=== PATIENT | female | born 1985 | race Caucasian/White ===

== ENCOUNTER 2016-07-09 08:41 | Emergency (ER) | payer BC ==
[~2016-07-09] VITALS: Ht 160 cm; Wt 49.6 kg
[2016-07-09 08:46] VITALS: TEMP 36.7; Ht 160 cm; Wt 49.6 kg
[2016-07-09] MEDS ORDERED: MULTTAB58 PO (08:50)
[2016-07-09] MEDS ORDERED: IBUPROFEN 200 MG TAB PO STA (08:57)
--- NOTE | 2016-07-09 10:12 | EMERGENCY ROOM VISIT NOTE ---
History First contact with patient: 08:48 Chief Complaint: FLU LIKE SX Stated Complaint: SORE THROAT, BUSTAMANTE, NAUSEA, MUSCLE SORENESS, FATIGUE History of Present Illness The patient is a 30 year old female who presents to the Emergency Room with complaints of sore throat, fatigue and muscle aches which started yesterday. The patient states that it was an abrupt onset of her symptoms. She also admits to a pressure headache which started yesterday. Currently she rates the headache at a 3 out of 10. She has not taken anything for the headache. The patient denies any fever. The patient does admit to some pressure in her ears and some nausea but denies any vomiting. The patient denies any cough or chest tightness. She does admit to diffuse body aches. The patient works at the [employer] at [employer]. Review of Systems 10 system review was performed and was negative unless stated otherwise history of present illness. Past Medical/Surgical History No Significant past medical history Social History Smoking Status: Never Smoker Smokeless Tobacco Use: No Alcohol Use: occasionally Drug Use: none Marital Status: single Housing Status: lives alone Occupation Status: employed Current/Historical Medications Scheduled Multiple Vitamin (Multivitamin), 1 TAB PO DAILY Allergies Coded Allergies: No Known Allergies (Unverified , 07/09/16) Physical Exam Vital Signs Date Time Temp Pulse Resp B/P Pulse Ox O2 Delivery O2 Flow Rate FiO2 07/09/16 08:46 36.7 75 16 114/68 99 Room Air Physical Exam PHYSICAL EXAM: Vital Signs were reviewed: Temperature 36.7, blood pressure 114/ 60, respiratory rate 16, pulse 75 Reviewed Nurse's notes and agree. Oxygen saturation is 99 % on room air which is normal . GENERAL: 30-year-old female appears in no acute distress. MENTAL STATUS: Alert, oriented, coherent. EARS: Canals clear. TMs good light reflex, no erythema or fluid level noted. NOSE: Nasal mucosa with moderate erythema engorgement. PHARYNX: Mild erythema, no edema noted. No exudate noted. Airway is adequate. NECK: Supple, non-tender. No lymphadenopathy noted. LUNGS: Clear to auscultation without wheezes rales or rhonchi. CARDIAC: Regular rate and rhythm without murmur. CERVICAL SPINE: Nontender to palpation over the spinous processes. Full range of motion without any difficulty. SKIN: No rashes noted. Medical Decision & Procedures Laboratory Results Test 5/19/17 09:10 Influenza Type A Antigen Neg for Influ A (NEG) Influenza Type B Antigen Neg for Influ B (NEG) Medications Administered Medications (Trade) Dose Ordered Sig/Enrique Route Start Time Stop Time Status Last Admin Dose Admin Ibuprofen (Advil Tab) 400 mg NOW STAT PO 07/09/16 08:57 07/09/16 08:58 DC 07/09/16 09:02 400 MG ED Course The patient was evaluated. The patient's EMR and medication list were reviewed. Rapid strep was negative. culture is pending.. Rapid influenza was negative for influenza A and influenza B.. The patient was given Motrin 400 mg by mouth for headache and body aches. The patient was informed of all findings and discharged home in stable condition. Medical Decision Differential diagnosis include influenza, strep pharyngitis, viral URI, Impression Primary Impression: Upper respiratory infection Additional Impression: Pharyngitis Departure Information Dispostion Home / Self-Care Condition GOOD Referrals No Doctor, Assigned (PCP) Forms HOME CARE DOCUMENTATION FORM, IMPORTANT VISIT INFORMATION Patient Instructions Common Cold - [facility], [facility], Sore Throat - [facility] Additional Instructions Follow sore throat handout instructions. Call in 24 hours for throat culture results. Push fluids, rest. Ibuprofen 400 mg every 6 hours with food for pain and body aches. If symptoms are not improving in 2-3 days recommend follow-up with your family physician. Problem Qualifiers Primary Impression: Upper respiratory infection URI type: unspecified viral URI Qualified Codes: J06.9 - Acute upper respiratory infection, unspecified; B97.89 - Other viral agents as the cause of diseases classified elsewhere Additional Impression: Pharyngitis Pharyngitis/tonsillitis etiology: unspecified etiology Qualified Codes: J02.9 - Acute pharyngitis, unspecified
[2016-07-09 10:19] VITALS: BP 107/43; PULSE 65; O2SAT 98
== END 2016-07-09 10:21 | disposition home or self-care (01) ==
LOC: C.EDB 08:46 → C.EDA 10:21
DX: J02.9 Acute pharyngitis, unspecified (principal); R53.83 Other fatigue; M79.1 Myalgia; R51 Headache

== ENCOUNTER → 2016-07-30 | Outpatient (CLI) | payer BC ==
[~2016-07-30] MED LIST: MULTTAB58 PO
[2016-08-02 15:43] LABS: CHLAMYDIA TRACH RNA*** NOT DETECTED (NOT DETECTED); GC (NEIS GONORRHOEAE)RNA** NOT DETECTED (NOT DETECTED)
== END | disposition home or self-care (01) ==
LOC: C.LABSPEC 17:29
PROVIDERS: ATTEND Physician Assistant
DX: Z11.3 Encounter for screening for infections with a predominantly sexual mode of transmission (principal)

== ENCOUNTER → 2016-07-30 | Outpatient (CLI) | payer BC | END | disposition home or self-care (01) | LOC: C.PAPS 11:14 | PROVIDERS: ATTEND Physician Assistant | DX: Z01.419 Encounter for gynecological examination (general) (routine) without abnormal findings (principal) ==

== ENCOUNTER → 2016-07-30 | Outpatient (CLI) | payer BC | END | disposition home or self-care (01) | LOC: C.LAB1850 16:47 | PROVIDERS: ATTEND Physician Assistant | DX: Z11.3 Encounter for screening for infections with a predominantly sexual mode of transmission (principal) ==

== ENCOUNTER → 2016-08-09 | Outpatient (CLI) | payer BC ==
[~2016-08-09] MED LIST changes: +GADAVIST IV PRN
--- NOTE | 2016-08-10 08:17 | DIAGNOSTIC IMAGING REPORT ---
MRI THE PELVIS WITHOUT A WITH GADOLINIUM CT DOSE: CLINICAL HISTORY: N94.9 right-sided pelvic mass TECHNIQUE: Imaging was performed in the sagittal, coronal, and axial planes. Imaging was performed before and after the administration of 4.5 cc of intravenous Gadavist. COMPARISON STUDY: None. FINDINGS: There is no evidence of pathologic marrow replacement. The ovaries appear normal. There is no pathologic adenopathy. There is a 21 mm circumscribed T1 and T2 bright mass which appears to arise from the right vaginal fornix. This is likely proteinaceous. 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 An endometrioma must be considered within the differential but is felt to be significantly less likely. There is a tiny contralateral 4 mm cystic lesion at the level of the left vaginal fornix, likely representing a second Vaughn's duct cyst. No uterine abnormalities are visualized. This case was reviewed with a fellow radiologist. IMPRESSION: 1. 21 mm well-circumscribed cystic mass which appears to arise from the right vaginal fornix. 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 2. 4 mm contralateral cystic lesion at the level of the left vaginal fornix likely representing a second Vaughn's duct cyst. 3. No ovarian or uterine abnormalities identified 4. No evidence of pathologic adenopathy Electronically signed by: Fili Otoole M.D. 08/10/2016 8:16 AM Dictated Date/Time: 08/09/2016 6:06 PM
== END | disposition home or self-care (01) ==
LOC: C.MRI 16:46
PROVIDERS: ATTEND Obstetrics & Gynecology
DX: N94.9 Unspecified condition associated with female genital organs and menstrual cycle (principal); N89.8 Other specified noninflammatory disorders of vagina